=== PATIENT | female | born 1975 | race American Indian/Alaskan Native ===

== ENCOUNTER 2018-12-24 08:57 | Outpatient (CLI) | payer BC ==
--- NOTE | 2018-12-27 13:07 | Mammography Report ---
DIGITAL SCREENING MAMMOGRAM WITH CAD, 12/24/2018 INDICATION: Baseline screening mammography. TECHNIQUE: Digital bilateral 2D mammography was obtained in the craniocaudal and mediolateral obliq ue projections. This examination was interpreted with the benefit of Computer-Aided Detection analysi s. COMPARISON: None. FINDINGS: Breast Density: The breasts are heterogeneously dense, which may obscure small masses. There is no evidence of dominant mass, suspicious calcifications or architectural distortion in the l eft breast. A right asymmetry on the CC view requires additional imaging. No architectural distortion or suspicious calcifications of the right breast. IMPRESSION: Right asymmetry requiring additional imaging. Recommend recall for right rolled CC, later al medial and spot compression CC views and right breast ultrasound if needed. Follow up recommendation: Special View: Spot Category 0: Incomplete. Needs additional imaging evaluation and/or prior mammograms for comparison. A "normal" or negative report should not discourage follow up or biopsy of a clinically significant f inding. A written summary of these findings will be mailed to the patient. The patient will be entered into a mammography reporting system which will generate a reminder letter for the patient's next appointmen t at the appropriate interval. The [employer] recommends yearly mammograms starting at age 40 and continuing as l breana as a woman is in good health. Breast MRI is recommended for women with an approximate 20-25% or greater lifetime risk of breast cancer, including women with a strong family history of breast or ova fransisca cancer or who have been treated for Hodgkin's disease. Signer Name: Zane Correa MD Signed: 12/27/2018 1:03 PM Workstation Name: [id number]
== END 2018-12-24 08:58 | disposition home or self-care (01) ==
LOC: SPVWC 08:57
PROVIDERS: ATTEND Obstetrics & Gynecology
DX: Z12.31 Encounter for screening mammogram for malignant neoplasm of breast (principal)
CPT/HCPCS: 77067

== ENCOUNTER 2019-03-03 12:44 | Outpatient (CLI) | payer BC ==
--- NOTE | 2019-03-03 14:37 | Mammography Report ---
DIGITAL RIGHT DIAGNOSTIC MAMMOGRAM WITH CAD, 03/03/2019 INDICATION: ABNORMAL MAMMOGRAM. Recalled for asymmetry. TECHNIQUE: Digital right mammographic imaging was performed. Spot compression views were obtained. This examination was interpreted with the benefit of Computer-aided Detection analysis. COMPARISON: 12/24/2018 Breast Density: The breast is heterogeneously dense, which may obscure small masses. FINDINGS: Lateral, rolled CC and spot compression CC views were performed and are negative. No persis tent asymmetry. IMPRESSION: No mammographic evidence of malignancy. Follow up recommendation: Routine BI-RADS Category 1: Negative. A "normal" or negative report should not discourage follow up or biopsy of a clinically significant f inding. A written summary of these findings will be mailed to the patient. The patient will be entered into a mammography reporting system which will generate a reminder letter for the patient's next appointmen t at the appropriate interval. According to the [employer], yearly mammograms are recommended starting at age 40 and continuing as long as a woman is in good health. Breast MRI is recommended for women with an jim roximately 20-25% or greater lifetime risk of breast cancer, including women with a strong family his tory of breast or ovarian cancer and women who have been treated for Hodgkin's disease. Signer Name: Zane Correa MD Signed: 03/03/2019 2:33 PM Workstation Name: [id number]
== END 2019-03-03 12:45 | disposition home or self-care (01) ==
LOC: SPVWC 12:44
PROVIDERS: ATTEND Obstetrics & Gynecology
DX: R92.8 Other abnormal and inconclusive findings on diagnostic imaging of breast (principal)